=== PATIENT | female | born 1930 ===

== ENCOUNTER 2017-03-24 07:22 | Outpatient (CLI) | payer MEDICARE, OTHER ==
--- NOTE | 2017-03-24 12:02 | Diagnostic Imaging Report ---
Indications: Neck pain Technique: Sagittal STIR and T1 weighted fast spin-echo, sagittal and axial T2 weighted fast spin echo, and axial cosmic aspir sequences of the cervical spine were performed without IV gadolinium administration. Findings: Comparison: None The C1-C2 level demonstrates mild hypertrophy of the retro-odontoid soft tissues.. Occipital-C1 and C1-2 alignments are intact. Spinal canal, lateral recesses and neural foramina are normal in caliber. The C2-C3 disc is normal in height and signal. No significant annular bulge/protrusion or marginal osteophyte formation. Facet joints are unremarkable. Mild hypertrophy of left ligamentum flavum. Spinal canal, lateral recesses and neural foramina are normal in caliber. The C3-C4 disc is normal in height and signal. No significant annular bulge/protrusion or marginal osteophyte formation. Right facet joint and ligament are unremarkable. Mild hypertrophy of left facet joint and ligamentum flavum. This results in mild narrowing of the left neural foramen. Spinal canal, lateral recesses and right neural foramen are normal in caliber. The C4-C5 disc is normal in height and signal. No significant annular bulge/protrusion or marginal osteophyte formation. Right facet joint demonstrates apparent mild medial margin spurring resulting in mild narrowing of the right neural foramen. Mild hypertrophy of left ligamentum flavum.. Spinal canal, lateral recesses and left neural foramen are normal in caliber. The C5-C6 disc is normal in height and signal. No significant annular bulge/protrusion or marginal osteophyte formation. Facet joints are unremarkable. Mild hypertrophy of bilateral ligamenta flavum, left greater than right. Spinal canal, lateral recesses and neural foramina are normal in caliber. The C6-C7 disc is normal in height and signal. Mild circumferential annular bulge.. Facet joints are unremarkable. Moderate hypertrophy of bilateral ligamenta flavum, left greater than right.. Spinal canalnarrowed to 9 mm AP diameter. No obvious cord compression results. Lateral recesses and neural foramina are normal in caliber.. The C7-T1 disc is normal in height and signal. No significant annular bulge/protrusion or marginal osteophyte formation. Facet joints are unremarkable. Mild hypertrophy left ligamentum flavum.. Spinal canal, lateral recesses and neural foramina are normal in caliber. Spinal cord is normal in configuration and signal characteristics. No intradural or extradural masses or fluid collections are demonstrated. The cervical vertebrae are normal in configuration and marrow signal characteristics , aside from degenerative changes described above. No fracture, lytic destruction, or other acute process is demonstrated. Paraspinous soft tissues are unremarkable. 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 Moderate ligamentous hypertrophy. Mild spinal stenosis results without obvious cord compression. Lesser degrees of ligamentous hypertrophy at additional levels without obvious neural impingement Mild thickening of which are odontoid soft tissue/ligament without obvious neural impingement.
== END 2017-03-24 08:52 | disposition home or self-care (01) ==
LOC: MRI 07:22
DX: M50.322 Other cervical disc degeneration at C5-C6 level (principal)
CPT/HCPCS: 72141